=== PATIENT | female | born 1930 | race Caucasian/White ===

== ENCOUNTER → 2017-04-14 | Day surgery (SDC) | payer OTHER ==
[~2017-04-14] MED LIST: GLUCTAB PO; LACTATED RINGER'S 1000 ML INJ 1,000 ML ONE; PROPOFOL 200 MG/20 ML AMP IV ONE; SIMV20 PO; SOTA80TA PO
--- NOTE | 2017-04-14 12:19 | GIPROC ---
[facility] [address] [facility], [address] COLONOSCOPY PROCEDURE REPORT EXAM DATE: 04/14/2017 PATIENT NAME: Deanna Chavez MR #: [id number] BIRTHDATE: 1930 ENDOSCOPIST: Kole German MD ORDER #: [id number] PROFESSOR OF ENVIRONMENTAL ENGINEERING: Tamiko Morris RN STATUS: outpatient INDICATIONS: The patient is a 86 yr old female here for a colonoscopy due to hx of colon cancer PROCEDURE PERFORMED: Colonoscopy with polypectomy MEDICATIONS: None and Per Anesthesia. PREP QUALITY: good ESTIMATED BLOOD LOSS: None CONSENT: The patient understands the risks and benefits of the procedure and understands that these risks include, but are not limited to: sedation, allergic reaction, infection, perforation and/or bleeding. Alternative means of evaluation and treatment include, among others: physical exam, x-rays, and/or surgical intervention. The patient elects to proceed with this endoscopic procedure. medical equipment was checked for proper function. Hand hygiene and appropriate measures for infection prevention was taken. After the risks, benefits and alternatives of the procedure were thoroughly explained, Informed consent was verified, confirmed and timeout was successfully executed by the treatment team. A digital exam revealed no abnormalities of the rectum The EC-[id number] ([id number]) endoscope was introduced through the anus and advanced to the cecum, which was identified by both the appendix and ileocecal valve. The instrument was then slowly withdrawn as the colon was fully examined. COLON FINDINGS: A large smooth pedunculated polyp was found in the sigmoid colon. A polypectomy was performed using snare cautery. The resection was complete and the polyp tissue was completely retrieved. Moderate diverticulosis was noted in the sigmoid colon. Surgical changes consistent with right hemicolectomy. The colon mucosa was otherwise normal. Retroflexed views revealed internal hemorrhoids and Retroflexed views revealed small internal hemorrhoids The scope was then completely withdrawn from the patient and the procedure terminated. PROCEDURE WITHDRAWAL TIME:12.9minutes ADVERSE EVENTS: There were no complications. IMPRESSIONS: 1. A large pedunculated polyp was found in the sigmoid colon; polypectomy was performed using snare cautery 2. Moderate diverticulosis was noted in the sigmoid colon 3. Surgical changes consistent with right hemicolectomy 4. The colon mucosa was otherwise normal 5. Retroflexed views revealed internal hemorrhoids 6. Retroflexed views revealed small internal hemorrhoids 7. Revealed no abnormalities of the rectum RECOMMENDATIONS: 1. Await biopsy results. Biopsy results will not be ready for 7-10 days. If you don't hear from us in two weeks, call our office for results. 2. High fiber diet 3. Yearly hemoccult 4. Follow-up: GI Clinic PRN RECALL: Return 3 years Colonoscopy Kole German MD eSigned: Kole German MD 04/14/2017 12:18 PM cc: Serge Duran M.D and [facility] PATIENT NAME: Deanna Chavez MR#: [id number]
== END | disposition home or self-care (01) ==
LOC: ESDC 10:20
PROVIDERS: ATTEND Internal Medicine Gastroenterology
DX: Z12.11 Encounter for screening for malignant neoplasm of colon (principal); Z85.038 Personal history of other malignant neoplasm of large intestine; D12.5 Benign neoplasm of sigmoid colon; K57.90 Diverticulosis of intestine, part unspecified, without perforation or abscess without bleeding; K64.8 Other hemorrhoids
CPT/HCPCS: 00810; 45385; 88305; J7120